=== PATIENT | female | born 2005 | race Two or more races ===

== ENCOUNTER 2025-09-01 11:53 | Observation (INO) | payer MEDICAID ==
--- NOTE | 2025-09-01 13:00 | DVHDS2 ---
Physician Discharge Progress N Final Diagnosis: BV vaginal yeast infection s/p fall well being established Problems List: (1) 31 weeks gestation of (2) Bacterial vaginosis in (3) Vaginal yeast infection Operations or Procedures: Operations or Procedures S: 20yo IUP@31.1 wks presents to OB triage after falling on her back at home at 1000. She reports cramping and vaginal pressure when she is standing and moving around but none when laying in bed. She also has yellow vaginal discharge. +FM, denies UCs/LOF/VB/COLE/vision changes/RUQ pain PNC with Dr. Bruner, next appt on 09/11/25, uncomplicated. OB hx: ABx1, C/S x1 PMH: denies PSH: C/S x1 O: VSS Category I EFM until 4 hours after fall TOCO: no UCs noted Abdomen palpated soft SSE by RN: wet mount collected OB sono: WNL, MVP 5.7cm, no placenta abruption or previa noted, EFW 1595g Laboratory Tests Test 09/01/25 12:40 Range/Units Vaginal WBC (Wet Prep) Many Vaginal RBC (Wet Prep) None seen Vaginal Epithelial Cells (Wet Prep) Many Vaginal Bacteria (Wet Prep) Moderate Vaginal Trichomonas (Wet Prep) Not present Vaginal Yeast (Wet Prep) Few Vaginal Clue Cells (Wet Prep) Few A: 20yo IUP@31.1 wks BV vaginal yeast infection s/p fall well being established P: D/C home Rx sent for monistat 7 and metrondiazole Pt instructed not to have sexual intercourse for 7 days during treatment. FKC/PTL/preE precautions reviewed f/u with Primary OB Dr. Cunningham consulted, agrees with POC Condition on Discharge: Stable Disposition: Home Discharge Instructions: Diet: Regular Activity: No Restrictions, As Tolerated Medications: see med list Follow Up Care: Specialist: f/u with Primary OB Discharge Statement: "Patient was advised to return to the ER or call 911 if any headaches, dizziness, shortness of breath, chest pain, abdominal pain, bleeding, fevers, or worsening of medical condition. Patient was counseled about treatment plan, medications, possible side effects, patientverbalized understanding. All questions were answered to the best of my ability. This discharge took greater then 30 minutes in planning, reviewing documentation, counseling the patient, and discussing with other team members." Visit Coding OBGYN Date of Service: Sep 01, 2025 Billing Provider: JEFFREY FARAH CNM RECORD PRESS OPERATOR Common Visit Codes: 51162-LPMOYKS OBS CARE (HIGH) RECORD PRESS OPERATOR Procedure Codes: 09413-80- NON-STRESS TEST JEFFREY FARAH CNM Sep 01, 2025 12:59
--- NOTE | 2025-09-01 13:16 | DVH ---
LIMITED OB ULTRASOUND > 14 WKS: HISTORY: fall, cramping TECHNIQUE: Multiple real-time grayscale images of the gravid uterus with duplex Doppler color flow an d M-mode spectral analysis. TRANSDUCER: FINDINGS: IUP single live fetus at 30 weeks, 3 days based on composite averages of the BPD, head circumference, abdominal circumference and femur length Estimated weight 1595 grams heart rate 143 beats per minute NIKUNJ appears adequate. Cervix is closed measuring 3 cm. Cephalic Presentation Grade III anterior Placenta without previa or abruption. 4-chamber heart, right kidney, stomach, bladder, left kidney within normal limits. IMPRESSION: IUP single live fetus at 30 weeks 3 days AUA corresponding to an ASIF of 11-07-25
[2025-09-01 13:33] LABS: Vaginal Trichomonas Not Present
[2025-09-01 13:34] LABS: Vaginal Bacteria Moderate; Vaginal Clue Cells Few; Vaginal Epithelial Cells Many
[2025-09-01] MEDS ORDERED: METR-344 PO (13:56)
[2025-09-01] MEDS ORDERED: MICO4CRE5 VA (13:56)
== END 2025-09-01 14:10 | disposition home or self-care (01) ==
LOC: LDRP 11:53
PROVIDERS: ADMIT Obstetrics & Gynecology; ATTEND Obstetrics & Gynecology
DX: O98.813 Other maternal infectious and parasitic diseases complicating pregnancy, third trimester (principal); B37.31 Acute candidiasis of vulva and vagina; Z3A.31 31 weeks gestation of pregnancy; Z98.890 Other specified postprocedural states
CPT/HCPCS: 59025; 76805; 81002; 87210; 94760; G0378